=== PATIENT | male | born 1960 | race Caucasian/White ===

== ENCOUNTER 2018-02-09 12:06 | Emergency (ER) | payer MEDICARE ==
[~2018-02-09] VITALS: Ht 185.4 cm; Wt 117.9 kg
[~2018-02-09 12:06] MED LIST: ASPI81CH PO; CLOP75 PO; IBUP600 PO; LISI20 PO; LOVA20 PO; LOVA40 PO; METF850 PO; METO25 PO; MIRT15 PO; ONDA4 PO; PENVK500 PO; PROM25 PO; Prozac20 MG PO; TRAM50 PO; VARE1 PO
[2018-02-09 12:38] LABS: BASOPHILS ABSOLUTE AUTO 0.04 K/mm3 (0.00-0.23); BASOPHILS PERCENT AUTO 0 % (0-2); EOSINOPHILS ABSOLUTE AUTO 0.21 K/mm3 (0.00-0.68); EOSINOPHILS PERCENT AUTO 2 % (0-6); Hematocrit 49.4 % (37.0-53.0); Hemoglobin 16.3 g/dL (13.5-17.5); IMMATURE GRAN ABSOLUTE AUTO 0.08 K/mm3 (0.00-0.10); IMMATURE GRAN PERCENT AUTO 1 % (0-1); LYMPHOCYTES ABSOLUTE AUTO 2.51 K/mm3 (0.84-5.20); LYMPHOCYTES PERCENT AUTO 26 % (21-46); MONOCYTES ABSOLUTE AUTO 0.79 K/mm3 (0.16-1.47); MONOCYTES PERCENT AUTO 8 % (4-13); Mean Corpuscular Volume 97 fL (80-100); Mean Platelet Volume 10.4 fL (9.1-12.4); NEUTROPHILS ABSOLUTE AUTO 5.86 K/mm3 (1.96-9.15); NEUTROPHILS PERCENT AUTO 62 % (41-73); Platelet Count 225 K/mm3 (150-400); RDW Coefficient Variation 12.6 % (11.7-14.2); RDW Standard Deviation 45.4 fL (35.1-46.3); White Blood Cell Count 9.49 K/mm3 (4.00-11.30)
[2018-02-09 12:53] LABS: Troponin I <0.015 ng/mL (0.000-0.040)
[2018-02-09 12:54] LABS: Alanine Aminotransfer (ALT/SGP 47 U/L (12-78); Albumin, Blood 3.7 g/dL (3.4-5.0); Albumin/Globulin Ratio 0.8 (0.8-1.8); Alk Phos 101 U/L (50-136); Anion Gap 9 mmol/L (6-16); Aspartate Aminotrans (AST/SGOT 39 U/L (12-37); Bilirubin, Total 0.6 mg/dL (0.1-1.0); Blood Urea Nitrogen 15 mg/dL (8-24); Bun/Creatinine Ratio 17.5 (12.0-20.0); CO2, Blood 26 mmol/L (21-32); Calcium, Blood 8.5 mg/dL (8.5-10.1); Chloride, Blood 105 mmol/L (98-108); Creatinine, Blood 0.86 mg/dL (0.60-1.20); Globulin, Blood 4.4 g/dL (2.2-4.0); Glomerular Filtration Rate >60 (60-); Glucose, Blood 125 mg/dL (70-99); Potassium, Blood 4.5 mmol/L (3.5-5.5); Sodium, Blood 140 mmol/L (136-145); Total Protein, Blood 8.1 g/dL (6.4-8.2)
[2018-02-09] MEDS ORDERED: Norco 5-325 Ta1 EACH PO (14:12)
[2018-02-09] MEDS ORDERED: IBUP800 PO (14:12)
== END 2018-02-09 14:52 | disposition home or self-care (01) ==
LOC: ER 12:06
PROVIDERS: Emergency Medicine
DX: R07.89 Other chest pain (principal); I10 Essential (primary) hypertension; E78.5 Hyperlipidemia, unspecified; F17.200 Nicotine dependence, unspecified, uncomplicated; Z79.899 Other long term (current) drug therapy; Z79.84 Long term (current) use of oral hypoglycemic drugs; Z79.01 Long term (current) use of anticoagulants; Z79.82 Long term (current) use of aspirin
CPT/HCPCS: 36415; 71101; 71260; 80053; 83880; 84484; 85025; 93005; 93010; 96361; 96374; 96375; 99284-25; J1885; J2405; J3010; J7030; Q9967

== ENCOUNTER 2019-03-23 20:38 | Emergency (ER) | payer MEDICARE ==
[~2019-03-23] VITALS: Ht 190.5 cm; Wt 99.8 kg
[~2019-03-23 20:38] MED LIST changes: +IBUP800 PO; +Norco 5-325 Ta1 EACH PO
[2019-03-23 20:56] LABS: BASOPHILS ABSOLUTE AUTO 0.04 K/mm3 (0.00-0.23); BASOPHILS PERCENT AUTO 0 % (0-2); EOSINOPHILS ABSOLUTE AUTO 0.16 K/mm3 (0.00-0.68); EOSINOPHILS PERCENT AUTO 1 % (0-6); Hematocrit 43.6 % (37.0-53.0); Hemoglobin 14.5 g/dL (13.5-17.5); IMMATURE GRAN ABSOLUTE AUTO 0.14 K/mm3 (0.00-0.10); IMMATURE GRAN PERCENT AUTO 1 % (0-1); LYMPHOCYTES ABSOLUTE AUTO 3.72 K/mm3 (0.84-5.20); LYMPHOCYTES PERCENT AUTO 29 % (21-46); MONOCYTES ABSOLUTE AUTO 1.22 K/mm3 (0.16-1.47); MONOCYTES PERCENT AUTO 10 % (4-13); Mean Corpuscular HGB 32.2 pg (26.0-34.0); Mean Corpuscular HGB Conc 33.3 g/dL (31.5-36.5); Mean Corpuscular Volume 97 fL (80-100); Mean Platelet Volume 10.4 fL (9.1-12.4); NEUTROPHILS ABSOLUTE AUTO 7.36 K/mm3 (1.96-9.15); NEUTROPHILS PERCENT AUTO 58 % (41-73); Platelet Count 223 K/mm3 (150-400); RDW Coefficient Variation 12.5 % (11.7-14.2); RDW Standard Deviation 44.6 fL (35.1-46.3); White Blood Cell Count 12.64 K/mm3 (4.00-11.30)
[2019-03-23 21:00] LABS: Calcium, Ionized (POC) 1.12 mmol/L (1.10-1.46); Chloride (POC) 103 mmol/L (98-108); Creatinine (POC) 1.7 mg/dL (0.8-1.3); Glucose (ISTAT POC) 124 mg/dL (70-99); Potassium (POC) 3.7 mmol/L (3.5-5.5); Sodium (POC) 137 mmol/L (135-148); Total CO2 (POC) 19 mmol/L (21-32)
[2019-03-23 21:11] LABS: International Normalized Ratio 0.94
[2019-03-23 21:16] LABS: Alanine Aminotransfer (ALT/SGP 64 U/L (12-78); Albumin, Blood 3.6 g/dL (3.4-5.0); Alk Phos 64 U/L (50-136); Anion Gap 10 mmol/L (6-16); Aspartate Aminotrans (AST/SGOT 55 U/L (12-37); Bilirubin, Total 0.3 mg/dL (0.1-1.0); Blood Urea Nitrogen 15 mg/dL (8-24); Bun/Creatinine Ratio 12.6 (12.0-20.0); CO2, Blood 20 mmol/L (21-32); Calcium, Blood 8.7 mg/dL (8.5-10.1); Chloride, Blood 106 mmol/L (98-108); Creatinine, Blood 1.19 mg/dL (0.60-1.20); Globulin, Blood 3.5 g/dL (2.2-4.0); Glomerular Filtration Rate >60 (60-); Glucose, Blood 124 mg/dL (70-99); Potassium, Blood 3.7 mmol/L (3.5-5.5); Sodium, Blood 136 mmol/L (136-145); Total Protein, Blood 7.1 g/dL (6.4-8.2); Troponin I <0.015 ng/mL (0.000-0.040)
== END 2019-03-23 22:07 | disposition short-term general hospital (02) ==
LOC: ER 20:38
PROVIDERS: Emergency Medicine
DX: S06.5X1A Traumatic subdural hemorrhage with loss of consciousness of 30 minutes or less, initial encounter (principal); S06.6X1A Traumatic subarachnoid hemorrhage with loss of consciousness of 30 minutes or less, initial encounter; F17.200 Nicotine dependence, unspecified, uncomplicated; Z79.899 Other long term (current) drug therapy; Z79.02 Long term (current) use of antithrombotics/antiplatelets; Z79.82 Long term (current) use of aspirin; X19.XXXA Contact with other heat and hot substances, initial encounter; Y92.39 Other specified sports and athletic area as the place of occurrence of the external cause
CPT/HCPCS: 70450; 71045; 80047; 80053; 84484; 85014; 85025; 85610; 85730; 93005; 93010; 96361; 96374; 96375; 99285-25; J2405; J7030

== ENCOUNTER 2019-09-07 01:01 | Observation (INO) | payer MEDICARE ==
[~2019-09-07] VITALS: Ht 182.9 cm; Wt 102.3 kg
[2019-09-07 01:28] LABS: Hemoglobin 19.2 g/dL (13.5-17.5); Mean Corpuscular HGB 30.1 pg (26.0-34.0); Mean Corpuscular HGB Conc 33.9 g/dL (31.5-36.5); Mean Corpuscular Volume 89 fL (80-100); Mean Platelet Volume 10.7 fL (9.1-12.4); Platelet Count 166 K/mm3 (150-400); RDW Coefficient Variation 12.6 % (11.7-14.2); RDW Standard Deviation 40.9 fL (35.1-46.3); Red Blood Cell Count 6.38 M/mm3 (4.30-5.90); White Blood Cell Count 14.33 K/mm3 (4.00-11.30)
[2019-09-07 01:38] LABS: Hematocrit 56.6 % (37.0-53.0)
[2019-09-07 02:02] LABS: Alanine Aminotransfer (ALT/SGP 63 U/L (12-78); Albumin, Blood 4.1 g/dL (3.4-5.0); Alk Phos 137 U/L (50-136); Anion Gap 18 mmol/L (6-16); Aspartate Aminotrans (AST/SGOT 47 U/L (12-37); Bilirubin, Total 0.7 mg/dL (0.1-1.0); Blood Urea Nitrogen 14 mg/dL (8-24); CO2, Blood 14 mmol/L (21-32); Calcium, Blood 9.7 mg/dL (8.5-10.1); Chloride, Blood 103 mmol/L (98-108); Cholesterol 264 mg/dL (50-200); Creatinine, Blood 0.67 mg/dL (0.60-1.20); Globulin, Blood 4.1 g/dL (2.2-4.0); Glomerular Filtration Rate >60 (60-); Glucose, Blood 363 mg/dL (70-99); HDL Cholesterol 33 mg/dL (>39); LDL/HDL RATIO Unable to Calculate; Low Density Lipoprotein Chol Unable to Calculate mg/dL (0-110); Magnesium, Blood 1.5 mg/dL (1.6-2.4); Potassium, Blood 4.1 mmol/L (3.5-5.5); Sodium, Blood 135 mmol/L (136-145); Total Protein, Blood 8.2 g/dL (6.4-8.2); Triglycerides 424 mg/dL (30-160); Troponin I <0.015 ng/mL (0.000-0.040); Very Low Density Lipoprot Chol Unable to Calculate mg/dL (6-32)
--- NOTE | 2019-09-07 03:27 | NUR ---
PATIENT ARRIVED TO ICU 15 VIA BED FROM ORDER SCHEDULE CLERK. PATIENT AWAKE LAYING FLAT. PATIENT VERBALIZED THAT HIS CHEST PAIN IS GONE, BUT CONTINUES TO HAVE UPPER GASTRIC PAIN POINTING TO MID UPPER ABD. NITRO 20MCG/MIN DRIP INFUSING. DOCTOR STERLING CALLED AND VERBALIZED TO GIVE PO BP MEDS THIS AM AND TITRATE NITRO OFF IF NO RETURN OF CP. RIGHT GROIN SITE WITH DRESSING CD&I AREA SOFT. RIGHT WRIST WITH TR BAND IN PLACE, AREA SOFT, NO OOZING SEEN.
[2019-09-07 04:55] LABS: Hemoglobin 17.8 g/dL (13.5-17.5); Mean Corpuscular HGB 30.3 pg (26.0-34.0); Mean Corpuscular HGB Conc 31.8 g/dL (31.5-36.5); Mean Platelet Volume 11.1 fL (9.1-12.4); Platelet Count 141 K/mm3 (150-400); RDW Coefficient Variation 12.7 % (11.7-14.2); RDW Standard Deviation 44.6 fL (35.1-46.3); Red Blood Cell Count 5.88 M/mm3 (4.30-5.90); White Blood Cell Count 15.45 K/mm3 (4.00-11.30)
[2019-09-07 05:00] LABS: Hematocrit 55.9 % (37.0-53.0); Mean Corpuscular Volume 95 fL (80-100)
[2019-09-07 05:27] LABS: Alanine Aminotransfer (ALT/SGP 56 U/L (12-78); Albumin, Blood 3.5 g/dL (3.4-5.0); Albumin/Globulin Ratio 0.9 (0.8-1.8); Alk Phos 116 U/L (50-136); Anion Gap 21 mmol/L (6-16); Aspartate Aminotrans (AST/SGOT 36 U/L (12-37); Bilirubin, Total 0.6 mg/dL (0.1-1.0); Blood Urea Nitrogen 13 mg/dL (8-24); Bun/Creatinine Ratio 18.9 (12.0-20.0); CO2, Blood 11 mmol/L (21-32); Calcium, Blood 8.9 mg/dL (8.5-10.1); Chloride, Blood 106 mmol/L (98-108); Creatinine, Blood 0.69 mg/dL (0.60-1.20); Globulin, Blood 3.9 g/dL (2.2-4.0); Glomerular Filtration Rate >60 (60-); Glucose, Blood 361 mg/dL (70-99); Potassium, Blood 4.5 mmol/L (3.5-5.5); Sodium, Blood 138 mmol/L (136-145); Total Protein, Blood 7.4 g/dL (6.4-8.2)
--- NOTE | 2019-09-07 06:00 | NUR ---
PATIENT UP TO BSC WITHOUT DIFFICULTY. CONTINUES TO HAVE NO C/O CHEST PAIN. NITRO DRIP TITRATED DOWN. PRESSURE ON TR BAND DEFLATING JOSE ANTONIO.
--- NOTE | 2019-09-07 06:45 | NUR ---
SUMMARY PATIENT HAS NO C/O CHEST PAIN, NITRO DRIP TITRATION ON FLOW SHEET. PATIENT CONTINUES TO C/O ABD PAIN TO MID UPPER ABD AREA. TR BAND TO RIGHT WRIST WITH 6 CC OF AIR REMOVED AT THIS TIME. RIGHT GROIN SITE REMAINS STABLE. PATIENT REPOSITIONING SELF IN BED FOR COMFORT.
[2019-09-07 07:36] LABS: Anion Gap 18 mmol/L (6-16); Blood Urea Nitrogen 16 mg/dL (8-24); Bun/Creatinine Ratio 21.2 (12.0-20.0); CO2, Blood 15 mmol/L (21-32); Chloride, Blood 105 mmol/L (98-108); Creatinine, Blood 0.76 mg/dL (0.60-1.20); Glomerular Filtration Rate >60 (60-); Glucose, Blood 404 mg/dL (70-99); Potassium, Blood 4.9 mmol/L (3.5-5.5); Sodium, Blood 138 mmol/L (136-145)
--- NOTE | 2019-09-07 10:57 | NUR ---
[place] of Care: Care assumed at 0700hr, bedside report received from NOC shift RN. Patient alert and oriented x4. Denies chest pain or pressure, dyspnea or SOB. C/o mid ABD pain 2-09/07, patient states pain continually decreasing. VSS, spO2-98-100% on RA. Nitro gtt infusing at 15mcg/min at shift change, indicated for chest pain. Nitro gtt now off, and patient continues to deny chest pain. Received new orders from Dr. Cyr this morning for LR at 150ml/hr and to change Humalog sliding scale to a high sliding scale. Additional 8units of SC Humalog given, following the 10units given from previous sliding scale order. Also received permission to not start insulin gtt, as anion gap and bicarb had improved on last lab values, next BMP ordered for 1300hr. Received call from Dr. Galloway this morning, following bedside ECHO. Received information from Dr. Galloway that patient may have lt ventricular thrombus. Received orders to d/c Lovenox, and Brilinta, received new orders for plavix, xerelto, and heparin gtt (pharmacy to manage). PO plavix given and heparin gtt and loading bolus given. Heparin dosing confirmed with 2nd RN. Patient calm and comfortable. Call light in reach, makes needs known. Will continue to monitor for pain, safety, comfort.
[2019-09-07 13:14] LABS: Anion Gap 11 mmol/L (6-16); Blood Urea Nitrogen 18 mg/dL (8-24); CO2, Blood 18 mmol/L (21-32); Calcium, Blood 8.7 mg/dL (8.5-10.1); Chloride, Blood 106 mmol/L (98-108); Creatinine, Blood 0.72 mg/dL (0.60-1.20); Glomerular Filtration Rate >60 (60-); Glucose, Blood 339 mg/dL (70-99); Potassium, Blood 4.3 mmol/L (3.5-5.5); Sodium, Blood 135 mmol/L (136-145)
--- NOTE | 2019-09-07 18:27 | NUR ---
Shift Summary: Patient slept on/off throughout shift. Continues to deny chest pain/pressure, dyspnea or SOB. C/o mid/upper ABD pain significantly increased following consumption of only 20% of full liquid lunch, still no chest pain at this time, VS remained stable. prn Maalox given x1 with good effect noted. Patient did not wish to eat dinner. Dr. Rudolph and Dr. Cyr both aware of patient's symptoms after lunch. Informed by Dr. Rudolph that ABD US did not show anything significant and that a more specific ABD US or CT (arterial flow), may need to be ordered if patient's symptoms return. Remained on heparin gtt at 15u/kh/hr, 90kg throughout remainder of shift, PTT drawn at 1820hr, awaiting results. Call from Dr. Rudolph this afternoon, informed that she d/c'd xarelto and wrote for coumadin (pharmacy consult), maintain heparin gtt. Call from Dr. Cyr this afternoon, received orders to d/c LR at 150ml/hr, and given NS at 75ml/hr, and BMP at 2100hr. Bilateral peripheral IV's remain patent and intact, infusing without difficulty. Voiding using urinal in bed without difficulty. Call light in reach, makes needs known. Will continue to monitor until report to NOC shift RN.
[2019-09-07 18:59] LABS: International Normalized Ratio 0.98; Prothrombin Time Results 10.5 Sec (9.7-11.5)
--- NOTE | 2019-09-07 20:00 | NUR ---
PATIENT RESTING QUIETLY, AWAKENS TO SLIGHT STIMULI. NO C/O CHEST PAIN OR SOB. RIGHT WRIST SITE WITH SMALL AMT OF BLOOD CONTAINED UNDER DRESSING AREA SOFT. RIGHT GROIN DRESSING CD&I, AREA SOFT NO OOZING SEEN. HEPARIN DRIP ADJUSTED PER PHARMACY ORDER. PATIENT HAVING HICCUPS OFF AND ON. REPOSITONING SELF IN BED WITHOUT DIFFICULTY.
[2019-09-07 20:45] LABS: Anion Gap 8 mmol/L (6-16); Blood Urea Nitrogen 19 mg/dL (8-24); Bun/Creatinine Ratio 33.3 (12.0-20.0); CO2, Blood 22 mmol/L (21-32); Calcium, Blood 8.7 mg/dL (8.5-10.1); Chloride, Blood 107 mmol/L (98-108); Creatinine, Blood 0.57 mg/dL (0.60-1.20); Glomerular Filtration Rate >60 (60-); Glucose, Blood 250 mg/dL (70-99); Potassium, Blood 3.9 mmol/L (3.5-5.5); Sodium, Blood 137 mmol/L (136-145)
--- NOTE | 2019-09-08 02:15 | NUR ---
PATIENT AWAKE AND C/O CRAMPING PAIN TO HIS LEFT FLANK AND MID GASTRIC AREA, "I FEEL LIKE I NEED TO POOP" UP TO BSC TO HAVE BM, UNABLE TO PASS STOOL, BUT HAD SMALL AMT OF FLATUS. MOM GIVEN.
[2019-09-08 03:16] LABS: Anion Gap 14 mmol/L (6-16); Blood Urea Nitrogen 19 mg/dL (8-24); Bun/Creatinine Ratio 34.9 (12.0-20.0); CO2, Blood 16 mmol/L (21-32); Calcium, Blood 8.1 mg/dL (8.5-10.1); Chloride, Blood 107 mmol/L (98-108); Creatinine, Blood 0.55 mg/dL (0.60-1.20); Glomerular Filtration Rate >60 (60-); Glucose, Blood 262 mg/dL (70-99); Magnesium, Blood 1.9 mg/dL (1.6-2.4); Potassium, Blood 3.9 mmol/L (3.5-5.5); Sodium, Blood 137 mmol/L (136-145)
[2019-09-08 04:08] LABS: BASOPHILS ABSOLUTE AUTO 0.04 K/mm3 (0.00-0.23); BASOPHILS PERCENT AUTO 0 % (0-2); EOSINOPHILS PERCENT AUTO 0 % (0-6); Hematocrit 52.8 % (37.0-53.0); Hemoglobin 17.2 g/dL (13.5-17.5); IMMATURE GRAN ABSOLUTE AUTO 0.17 K/mm3 (0.00-0.10); IMMATURE GRAN PERCENT AUTO 1 % (0-1); International Normalized Ratio 0.97; LYMPHOCYTES ABSOLUTE AUTO 1.18 K/mm3 (0.84-5.20); LYMPHOCYTES PERCENT AUTO 6 % (21-46); MONOCYTES ABSOLUTE AUTO 2.05 K/mm3 (0.16-1.47); MONOCYTES PERCENT AUTO 11 % (4-13); Mean Corpuscular HGB 30.4 pg (26.0-34.0); Mean Corpuscular HGB Conc 32.6 g/dL (31.5-36.5); Mean Corpuscular Volume 94 fL (80-100); Mean Platelet Volume 10.8 fL (9.1-12.4); NEUTROPHILS ABSOLUTE AUTO 15.26 K/mm3 (1.96-9.15); NEUTROPHILS PERCENT AUTO 82 % (41-73); Platelet Count 153 K/mm3 (150-400); Prothrombin Time Results 10.4 Sec (9.7-11.5); RDW Coefficient Variation 13.2 % (11.7-14.2); RDW Standard Deviation 44.9 fL (35.1-46.3); Red Blood Cell Count 5.65 M/mm3 (4.30-5.90)
--- NOTE | 2019-09-08 06:28 | NUR ---
SUMMARY PATIENT RESTING QUIETLY, CONTINUES TO HAVE ABD CRAMPS AND HICCUPS T/O NIGHT. UP TO BSC PASSING FLATUS ONLY. NO C/O NAUSEA. NO C/O CHEST PAIN. MONITOR SHOWING SINUS RHYTHM WITH BBB T/O NIGHT WITH NO ECTOPY SEEN. HEPARIN DRIP CONTINUES.
--- NOTE | 2019-09-08 08:22 | NUR ---
Received report from Letha GANDHI. Patient awake in bed and able to answer questions appropriately. He is independent in bed and getsup to bedside cammode when needed. He uses urinal appropriately. He is on RA and sats 96%. He has bilateral 18ga IV's inLAC, RAC. Dressings intact and sites WNL's and are infusing Heparin at 18 units/kg/hr and NS at 75 ml/hr. He has been started on cumadion and awaiting levels to rise. Right wrist TR band site has clear opsite dressing and wrist immobilizer in place and shows no signs of bleeding or bruising. Left groin sit C/D/I and also shows no signs of bleeding or bruising.
--- NOTE | 2019-09-08 10:09 | NUR ---
He tolerated diet and meds well. His CBG 404 and coverage and long acting given. He remains on RA and sats well. He denies any current needs other than wanting to go home. VSS See EMR
--- NOTE | 2019-09-08 13:27 | NUR ---
Patient is PCU. Dr Cyr came by and added 15units lantus and lactalose and he got up to bedside cammode and tried without success. He has been having on going hiccups r/t to his constipation. VSS, See EMR. Last CBG was 268 with 10 units coverage. If patient has bm may be able to go home.
--- NOTE | 2019-09-08 15:29 | NUR ---
Patient has been up to bedside cammode twice and had two large liquid stools. He is able to eat snacks and tolerated well. He states he feels better and feels like he has to have another BM. Notified Dr Cyr and she will be dischargeing him. VSS See EMR. Up independent in room and remains on RA and sats 90's.
[2019-09-08] MEDS ORDERED: DOCU100 PO ×2 (17:28)
[2019-09-08] MEDS ORDERED: ENOX120I SC ×2 (17:29)
[2019-09-08] MEDS ORDERED: INSULANPEN SC ×2 (17:30)
[2019-09-08] MEDS ORDERED: Humalog100 UNIT/3 SC ×2 (17:32)
[2019-09-08] MEDS ORDERED: Maglox Liquid360 ML PO ×2 (17:34)
[2019-09-08] MEDS ORDERED: WARF5 PO ×2 (17:35)
[2019-09-08] MEDS ORDERED: SENN187 PO ×2 (17:35)
[2019-09-09] MEDS ORDERED: METF500 PO (17:37)
== END 2019-09-08 18:00 | disposition home or self-care (01) ==
LOC: ER 01:01 → ICUW 01:03 → ER 01:57 → ICUW 02:34
PROVIDERS: Emergency Medicine; Internal Medicine; Internal Medicine Interventional Cardiology; ADMIT Internal Medicine
DX: I21.9 Acute myocardial infarction, unspecified (principal); I25.110 Atherosclerotic heart disease of native coronary artery with unstable angina pectoris; T82.855A Stenosis of coronary artery stent, initial encounter; E78.5 Hyperlipidemia, unspecified; K59.00 Constipation, unspecified; E11.10 Type 2 diabetes mellitus with ketoacidosis without coma; I10 Essential (primary) hypertension; E11.65 Type 2 diabetes mellitus with hyperglycemia; F17.210 Nicotine dependence, cigarettes, uncomplicated; Z95.5 Presence of coronary angioplasty implant and graft; Z79.82 Long term (current) use of aspirin; Z79.4 Long term (current) use of insulin; Z79.899 Other long term (current) drug therapy; Z79.01 Long term (current) use of anticoagulants
CPT/HCPCS: 36415; 71045; 76705; 80048; 80053; 80061; 82947; 83605; 83690; 83735; 84484; 85025; 85027; 85347; 85610; 85730; 86850; 86900; 86901; 93005; 93010; 93306; 93454; 96372; 96374; 96375; 99152; 99153; 99285-25; A9270-GY; C1725; C1760; C1769; C1874; C1887; C1894; C9113; C9600; G0378; J1644; J1650; J2250; J2270; J2405; J3010; J7030; J7040; J7120; Q9967

== ENCOUNTER 2019-09-09 10:19 | Day surgery (SDC) | payer MEDICARE ==
[~2019-09-09 10:19] MED LIST changes: +DOCU100 PO; +ENOX120I SC; +Humalog100 UNIT/3 SC; +INSULANPEN SC; +Maglox Liquid360 ML PO; +SENN187 PO; +WARF5 PO
--- NOTE | 2019-09-09 11:11 | NUR ---
PT REPORTS "JUST GOT OUT OF THE HOSPITAL LAST NOC". INR RESULT FROM YESTERDAY WAS 0.97, INR NOT DONE TODAY. PT REPORTS HE HAS NOT STARTED HIS COUMADIN WILL BE PICKING UP PRESCRIPTION AFTER HE LEAVES JOSE. PT ALSO REPORTS "I HAVENT TAKEN ANY OF MY MEDS, THATS PROBABLY WHY ALL THIS HAPPENED" PT TEACHING ON THE IMPORTANCE OF TAKING MEDS PRESCRIBED. PREVIOUS MEDS INCLUDE PLAVIX FOR HX OF STENTS, DIABETIC MEDS AND VERBALIZES UNDERSTANDING THE IMPORTANCE OF MEDICATIONS.
[2019-09-09] MEDS ORDERED: METF500 PO (17:37)
--- NOTE | 2019-09-09 17:57 | NUR ---
PT REPORTS HE PICKED UP HIS PRESCRIPTIONS TODAY AND COUMADIN 5MG. MEDICATION LIST UPDATED.
== END 2019-09-09 17:35 | disposition home or self-care (01) ==
LOC: ATC 10:19
DX: I24.9 Acute ischemic heart disease, unspecified (principal)
CPT/HCPCS: 96372; 99211; J1650

== ENCOUNTER 2019-09-10 00:12 | Day surgery (SDC) | payer MEDICARE ==
[~2019-09-10 00:12] MED LIST changes: +METF500 PO
== END 2019-09-10 22:55 | disposition home or self-care (01) ==
LOC: ATC 00:12
DX: I24.9 Acute ischemic heart disease, unspecified (principal); I51.3 Intracardiac thrombosis, not elsewhere classified; E11.10 Type 2 diabetes mellitus with ketoacidosis without coma; I25.10 Atherosclerotic heart disease of native coronary artery without angina pectoris; Z95.5 Presence of coronary angioplasty implant and graft; Z79.01 Long term (current) use of anticoagulants
CPT/HCPCS: 96372; J1650

== ENCOUNTER 2019-09-11 02:44 | Day surgery (SDC) | payer MEDICARE | END 2019-09-11 16:14 | disposition home or self-care (01) | LOC: ATC 02:44 | DX: I24.9 Acute ischemic heart disease, unspecified (principal); I51.3 Intracardiac thrombosis, not elsewhere classified; E11.10 Type 2 diabetes mellitus with ketoacidosis without coma; I25.10 Atherosclerotic heart disease of native coronary artery without angina pectoris; Z95.5 Presence of coronary angioplasty implant and graft | CPT/HCPCS: 36416; 85610; 96372; J1650 ==

== ENCOUNTER 2019-09-12 00:16 | Day surgery (SDC) | payer MEDICARE | END 2019-09-12 17:11 | disposition home or self-care (01) | LOC: ATC 00:16 | DX: I24.9 Acute ischemic heart disease, unspecified (principal); I51.3 Intracardiac thrombosis, not elsewhere classified; E11.10 Type 2 diabetes mellitus with ketoacidosis without coma; I25.10 Atherosclerotic heart disease of native coronary artery without angina pectoris; Z95.5 Presence of coronary angioplasty implant and graft; Z79.01 Long term (current) use of anticoagulants | CPT/HCPCS: 36416; 85610; 96372; J1650 ==

== ENCOUNTER 2019-09-13 01:02 | Day surgery (SDC) | payer MEDICARE | END 2019-09-13 17:13 | disposition home or self-care (01) | LOC: ATC 01:02 | DX: I25.110 Atherosclerotic heart disease of native coronary artery with unstable angina pectoris (principal); E11.9 Type 2 diabetes mellitus without complications; I10 Essential (primary) hypertension; F17.210 Nicotine dependence, cigarettes, uncomplicated; E11.65 Type 2 diabetes mellitus with hyperglycemia; K59.00 Constipation, unspecified; E87.2 Acidosis; Z79.02 Long term (current) use of antithrombotics/antiplatelets; Z79.82 Long term (current) use of aspirin; Z79.899 Other long term (current) drug therapy | CPT/HCPCS: 36416; 85610; 96372; J1650 ==

== ENCOUNTER 2019-09-14 00:12 | Day surgery (SDC) | payer MEDICARE ==
--- NOTE | 2019-09-14 08:20 | NUR ---
INR 1.2, WILL CALL PCP FOR INSTRUCTIONS.
--- NOTE | 2019-09-14 11:32 | NUR ---
PCP [facility]OPE[facility] OFFICE NOTIFIED OF CONCERNS ON LOWERING INR LEVELS, PT STATES HE IS TAKING HIS WARFARIN. OFFICE TO CALL BACK AND PATIENT.
== END 2019-09-14 22:51 | disposition home or self-care (01) ==
LOC: ATC 00:12
DX: I24.9 Acute ischemic heart disease, unspecified (principal); I25.110 Atherosclerotic heart disease of native coronary artery with unstable angina pectoris; E11.9 Type 2 diabetes mellitus without complications; I10 Essential (primary) hypertension; F17.210 Nicotine dependence, cigarettes, uncomplicated; K59.00 Constipation, unspecified; E87.2 Acidosis; Z79.01 Long term (current) use of anticoagulants; Z79.899 Other long term (current) drug therapy; Z79.02 Long term (current) use of antithrombotics/antiplatelets; Z79.82 Long term (current) use of aspirin; Z79.84 Long term (current) use of oral hypoglycemic drugs
CPT/HCPCS: 36416; 85610; 96372; J1650

== ENCOUNTER 2019-09-15 00:17 | Day surgery (SDC) | payer MEDICARE ==
--- NOTE | 2019-09-15 07:49 | NUR ---
FINGER STICK INR: TODAY WAS 1.2, PT ENCOURAGED TO CALL ONCE AGAIN AND GET INFO ON RAISING HIS COUMADIN DOSE, PT STATES THAT HE WILL CALL FIRST THING THIS MORNING.
== END 2019-09-15 16:10 | disposition home or self-care (01) ==
LOC: ATC 00:17
DX: I24.9 Acute ischemic heart disease, unspecified (principal); I10 Essential (primary) hypertension; I25.10 Atherosclerotic heart disease of native coronary artery without angina pectoris; E11.9 Type 2 diabetes mellitus without complications; F17.210 Nicotine dependence, cigarettes, uncomplicated; Z79.899 Other long term (current) drug therapy; Z79.82 Long term (current) use of aspirin; Z79.01 Long term (current) use of anticoagulants
CPT/HCPCS: 36416; 85610; 96372; J1650

== ENCOUNTER 2019-09-16 00:05 | Day surgery (SDC) | payer MEDICARE | END 2019-09-16 16:00 | disposition home or self-care (01) | LOC: ATC 00:05 | DX: I20.0 Unstable angina (principal); E11.10 Type 2 diabetes mellitus with ketoacidosis without coma; E11.65 Type 2 diabetes mellitus with hyperglycemia; I10 Essential (primary) hypertension; K59.00 Constipation, unspecified; F17.210 Nicotine dependence, cigarettes, uncomplicated; Z79.82 Long term (current) use of aspirin; Z79.84 Long term (current) use of oral hypoglycemic drugs; Z79.02 Long term (current) use of antithrombotics/antiplatelets; Z79.899 Other long term (current) drug therapy | CPT/HCPCS: 36416; 85610; 96372; J1650 ==

== ENCOUNTER 2019-09-18 00:33 | Day surgery (SDC) | payer MEDICARE ==
--- NOTE | 2019-09-18 07:59 | NUR ---
FINGERSTICK INR 1.4 MEDICATION GIVEN PER ORDERS.
== END 2019-09-18 15:59 | disposition home or self-care (01) ==
LOC: ATC 00:33
DX: I24.9 Acute ischemic heart disease, unspecified (principal); I25.110 Atherosclerotic heart disease of native coronary artery with unstable angina pectoris; E11.65 Type 2 diabetes mellitus with hyperglycemia; F17.210 Nicotine dependence, cigarettes, uncomplicated; K59.00 Constipation, unspecified; E87.2 Acidosis; I10 Essential (primary) hypertension; Z79.02 Long term (current) use of antithrombotics/antiplatelets; Z79.82 Long term (current) use of aspirin; Z79.899 Other long term (current) drug therapy
CPT/HCPCS: 36416; 85610; 96372; J1650

== ENCOUNTER 2019-09-21 01:26 | Day surgery (SDC) | payer MEDICARE ==
--- NOTE | 2019-09-21 07:57 | NUR ---
PT INSTRUCTED TO CONTACT HIS PCP FOR FURTHER INSTRUCTIONS FOR COUMADIN DOSING AND INR TESTING. HE REPORTS HIS PCP IS VONDA LOPEZ. WILL FAX INR REULTS TO VONDA LOPEZ'S OFFICE.
== END 2019-09-21 07:42 | disposition home or self-care (01) ==
LOC: ATC 01:26
DX: I24.9 Acute ischemic heart disease, unspecified (principal); I10 Essential (primary) hypertension; F17.210 Nicotine dependence, cigarettes, uncomplicated; E11.65 Type 2 diabetes mellitus with hyperglycemia; E11.10 Type 2 diabetes mellitus with ketoacidosis without coma; K59.00 Constipation, unspecified; I25.10 Atherosclerotic heart disease of native coronary artery without angina pectoris; Z79.82 Long term (current) use of aspirin; Z79.02 Long term (current) use of antithrombotics/antiplatelets; Z79.84 Long term (current) use of oral hypoglycemic drugs
CPT/HCPCS: 36416; 85610; 99211; J1650

== ENCOUNTER 2019-09-22 00:13 | Day surgery (SDC) | payer MEDICARE | END 2019-09-22 22:48 | disposition home or self-care (01) | LOC: ATC 00:13 | DX: I24.9 Acute ischemic heart disease, unspecified (principal); I10 Essential (primary) hypertension; I25.10 Atherosclerotic heart disease of native coronary artery without angina pectoris; F17.210 Nicotine dependence, cigarettes, uncomplicated; K59.00 Constipation, unspecified; E11.65 Type 2 diabetes mellitus with hyperglycemia; E11.10 Type 2 diabetes mellitus with ketoacidosis without coma; Z79.82 Long term (current) use of aspirin; Z79.84 Long term (current) use of oral hypoglycemic drugs; Z79.899 Other long term (current) drug therapy ==

== ENCOUNTER 2022-01-20 04:59 | Emergency (ER) | payer MEDICARE ==
[~2022-01-20] VITALS: Ht 182.9 cm; Wt 111.1 kg
== END 2022-01-20 07:58 | disposition home or self-care (01) ==
LOC: ER 04:59
DX: U07.1 COVID-19 (principal); F17.210 Nicotine dependence, cigarettes, uncomplicated; Z79.899 Other long term (current) drug therapy; Z79.01 Long term (current) use of anticoagulants; Z79.84 Long term (current) use of oral hypoglycemic drugs
CPT/HCPCS: A9270; J1885

== ENCOUNTER 2023-12-10 11:51 | Day surgery (SDC) | payer MEDICARE ==
[~2023-12-10] VITALS: Ht 182.9 cm; Wt 107.4 kg
[~2023-12-10 11:51] MED LIST changes: +Lactated Ringer's 1,000 ML IV ONE; +propofoL 50 ML IV ONE
[2023-12-10] MEDS ORDERED: Lactated Ringer's 1,000 ML IV ONE ×3 (13:00→15:46)
[2023-12-10] MEDS ORDERED: propofoL 50 ML IV ONE ×2 (14:20→14:36)
[2023-12-10 15:45] VITALS: BP 145/92
--- NOTE | 2023-12-10 15:55 | NUR ---
12/10/23 1554 JENNI MATTHEW PT IV WAS NOT WORKING IN RIGHT HAND; NEW IV STARTED IN RT HAND PATENT. NEW BAG OF LR 1000ML [id number]. LATE ENTRY: COMPUTER DURING END OF CASE.
== END 2023-12-10 15:45 | disposition home or self-care (01) ==
LOC: ORSCSDS 11:51
PROVIDERS: Internal Medicine Gastroenterology
PROC: 0DBN8ZX Excision of Sigmoid Colon, Via Natural or Artificial Opening Endoscopic, Diagnostic (ICD-10-PCS; principal; 2023-12-10 13:15)
PROC: 0DBK8ZX Excision of Ascending Colon, Via Natural or Artificial Opening Endoscopic, Diagnostic (ICD-10-PCS; principal; 2023-12-10 13:15)
PROC: 0DBM8ZX Excision of Descending Colon, Via Natural or Artificial Opening Endoscopic, Diagnostic (ICD-10-PCS; principal; 2023-12-10 13:15)
PROC: 0DBL8ZX Excision of Transverse Colon, Via Natural or Artificial Opening Endoscopic, Diagnostic (ICD-10-PCS; principal; 2023-12-10 13:15)
DX: K62.5 Hemorrhage of anus and rectum (principal); D12.3 Benign neoplasm of transverse colon; D12.2 Benign neoplasm of ascending colon; D12.4 Benign neoplasm of descending colon; D12.5 Benign neoplasm of sigmoid colon; K57.30 Diverticulosis of large intestine without perforation or abscess without bleeding; E11.9 Type 2 diabetes mellitus without complications; E78.5 Hyperlipidemia, unspecified; I25.10 Atherosclerotic heart disease of native coronary artery without angina pectoris; Z79.01 Long term (current) use of anticoagulants; F17.210 Nicotine dependence, cigarettes, uncomplicated; F41.8 Other specified anxiety disorders; I10 Essential (primary) hypertension; Z79.899 Other long term (current) drug therapy
CPT/HCPCS: 82947; 88305; J2704; J7120